=== PATIENT | male | born 1990 | race Caucasian/White ===

== ENCOUNTER 2020-03-02 09:25 | Emergency (ER) | payer BC, OTHER ==
[2020-03-02] MEDS ORDERED: Sodium Chloride 0.9% 10 ML Syringe FLUSH PRN (09:36)
[2020-03-02] MEDS ORDERED: fentaNYL 100 MCG/2 ML SDV IVPUSH ONE ×2 (09:36→10:25)
--- NOTE | 2020-03-02 09:39 | EDM.PDOC ---
ED HPI GENERAL MEDICAL PROBLEM - General Chief Complaint: Lower Extremity Injury/Pain Stated Complaint: FELL OFF A ROOF Time Seen by Provider: 03/02/20 09:36 Source of Information: Reports: Patient, RN Notes Reviewed History Limitations: Reports: No Limitations - History of Present Illness INITIAL COMMENTS - FREE TEXT/NARRATIVE: 29-year-old gentleman presents emergency department today with complaint of right foot pain ankle pain, he injured himself while at work he fell through some construction material onto the ground below estimate 10 foot height he did not hit his head there was no loss of consciousness denies any other injuries other than his right foot area Right Ankle Pain Score (Numeric/FACES): 9 - Related Data Allergies Allergy/AdvReac Type Severity Reaction Status Date / Time No Known Allergies Allergy Verified 03/02/20 09:45 Home Meds: Home Meds Hydrocodone/Acetaminophen [Hydrocodon-Acetaminophen 5-325] 1 each PO TID PRN #30 tablet 03/02/20 [Rx] Past Medical History - Past Health History Medical/Surgical History: Denies Medical/Surgical History Social & Family History - Tobacco Use Smoking Status *Q: Current Some Day Smoker Review of Systems - Review of Systems Review Of Systems: See Below Constitutional: Reports: No Symptoms Musculoskeletal: Reports: Foot Pain ED EXAM, GENERAL - Physical Exam Exam: See Below Free Text/Narrative:: Examination of the right foot area I do not appreciate any erythema there is no deformity pedal pulses +2 he has limited range of motion of the digit secondary to pain there is tenderness to any amount of palpation over the right ankle no tenderness to the knee no tenderness to the hip pelvic rocks is negative Exam Limited By: No Limitations General Appearance: Alert, Mild Distress ED TRAUMA EXTREMITY PROCEDURES - Splinting Right Lower Extremity Splint Site: Calcaneus Pre-Procedure NV Status: Normal Post-Procedure NV Status: Normal Splint Material: Fiberglass Splint Design: Posterior Applied & Form Fitted By: Provider, Nurse Provider Post-Splint Application NV Check: NV Status Normal, Good Position Complications: No Course - Vital Signs Last Recorded V/S: Last Vital Signs Temp 97.4 F 03/02/20 09:33 Pulse 62 03/02/20 10:40 Resp 18 03/02/20 10:40 BP 128/81 03/02/20 10:40 Pulse Ox 100 03/02/20 10:40 - Orders/Labs/Meds Orders: Active Orders 24 hr Category Date Time Status Peripheral IV Care [RC] . DIRECTED Care 03/02/20 09:37 Active Foot wo Cont Rt [CT] Stat Exams 03/02/20 11:12 Taken Sodium Chloride 0.9% [Saline Flush] Med 03/02/20 09:36 Active 10 ml FLUSH ASDIRECTED PRN DME for Discharge [COMM] Per Unit Routine Oth 03/02/20 12:46 Ordered Peripheral IV Insertion Adult [OM.PC] Urgent Oth 03/02/20 09:36 Ordered Medication Orders Sodium Chloride (Saline Flush) 10 ml FLUSH ASDIRECTED PRN PRN Reason: Keep Vein Open Last Admin: 03/02/20 09:47 Dose: 10 ml Documented by: CHAY Meds: Medications Generic Name Dose Route Start Last Admin Trade Name Freq PRN Reason Stop Dose Admin Sodium Chloride 10 ml 03/02/20 09:36 03/02/20 09:47 Saline Flush FLUSH 10 ml ASDIRECTED PRN Administration Keep Vein Open Discontinued Medications Generic Name Dose Route Start Last Admin Trade Name Freq PRN Reason Stop Dose Admin Fentanyl 100 mcg 03/02/20 09:36 03/02/20 09:45 Sublimaze IVPUSH 03/02/20 09:37 100 mcg ONETIME ONE Administration Fentanyl 50 mcg 03/02/20 10:25 03/02/20 10:37 Sublimaze IVPUSH 03/02/20 10:26 50 mcg ONETIME ONE Administration Ketamine HCl 20 mg 03/02/20 10:45 03/02/20 10:38 Ketalar IV 03/02/20 10:46 20 mg ONETIME ONE Administration Ketorolac Tromethamine 60 mg 03/02/20 11:11 03/02/20 12:08 Toradol IM 03/02/20 11:12 60 mg ONETIME ONE Administration Departure - Departure Time of Disposition: 12:48 Disposition: Home, Self-Care 01 Condition: Fair Clinical Impression: Calcaneus fracture, right Qualifiers: Encounter type: initial encounter Calcaneus location: body Fracture type: closed Fracture alignment: displaced Qualified Code(s): S92.011A - Displaced fracture of body of right calcaneus, initial encounter for closed fracture - Discharge Information Prescriptions: Hydrocodone/Acetaminophen [Hydrocodon-Acetaminophen 5-325] 1 each PO TID PRN #30 tablet PRN Reason: Pain Instructions: Calcaneal Fracture Repair Surgery, Care After Referrals: PCP,None [Primary Care Provider] - Forms: ED Department Discharge Care Plan Goals: Appointment with Dr. Pitts next week: Monday March 09, 2020 at 10am. Use your pain medication combination of the hydrocodone/Tylenol in combination with ibuprofen, alternate these pain meds as needed to control your pain, call or return to the emergency department worsening of symptoms Sepsis Event Note (ED) - Focused Exam Vital Signs: Vital Signs Temp Pulse Resp BP Pulse Ox 03/02/20 10:40 62 18 128/81 100 03/02/20 09:33 97.4 F 64 20 113/87 100 - My Orders Last 24 Hours: My Active Orders 03/02/20 09:36 Sodium Chloride 0.9% [Saline Flush] 10 ml FLUSH ASDIRECTED PRN Peripheral IV Insertion Adult [OM.PC] Urgent 03/02/20 09:37 Peripheral IV Care [RC] . DIRECTED 03/02/20 11:12 Foot wo Cont Rt [CT] Stat 03/02/20 12:46 DME for Discharge [COMM] Per Unit Routine - Assessment/Plan Last 24 Hours: My Active Orders 03/02/20 09:36 Sodium Chloride 0.9% [Saline Flush] 10 ml FLUSH ASDIRECTED PRN Peripheral IV Insertion Adult [OM.PC] Urgent 03/02/20 09:37 Peripheral IV Care [RC] . DIRECTED 03/02/20 11:12 Foot wo Cont Rt [CT] Stat 03/02/20 12:46 DME for Discharge [COMM] Per Unit Routine Plan: Assessment Acuity = acute Site and laterality = calcaneus fracture right closed displaced Etiology = secondary to trauma Manifestations = pain Location of injury = Home Lab values = x-ray and CT described a fracture above Plan Good relief with combination Toradol ketamine and fentanyl in the emergency department prescription written for hydrocodone 5/325 1 tab p.o. 3 times daily PRN total #30, he is placed in a posterior splint will follow-up with orthopedics next week discussed case with Dr. Pitts orthopedic surgery at 1230 This note was dictated using [employer] voice recognition software please call with any questions on syntax or grammar.
[2020-03-02] MEDS ORDERED: Ketamine 500 MG/5 ML MDV IV ONE ×2 (10:25→10:45)
--- NOTE | 2020-03-02 10:36 | CR ---
Ankle Min 3V Rt CLINICAL HISTORY: Pain, trauma FINDINGS: The soft tissues are swollen over the lateral malleolus.. There is deformity and irregular density in the calcaneus with flattening of Bohler's angle. Ankle mortise is anatomic. Impression: Calcaneal fracture
[2020-03-02] MEDS ORDERED: Ketorolac 60 MG/2 ML SDV IM ONE (11:11)
--- NOTE | 2020-03-02 12:50 | CT ---
Foot wo Cont Rt CLINICAL HISTORY: Calcaneal fracture TECHNIQUE: Multiple thin slice axial images were performed through the right foot. The images were reconstructed in the coronal and sagittal planes. Auto dosage reduction and iterative reconstruction techniques employed. FINDINGS: There is a displaced comminuted fracture through the mid calcaneus extending into the anterior calcaneus and subtalar joint. It extends into the calcaneocuboid joint. There are overlapping fracture fragments in the posterior subtalar joint. There is an ossification posterior to the talus which is felt to represent an os trigonum. Fracture extends through the sustentaculum troy which is displaced. The talus and cuboid are intact. Navicular and cuneiforms are intact. IMPRESSION: Comminuted displaced fracture through the mid and anterior calcaneus extending into the subtalar and calcaneocuboid joints
== END 2020-03-02 13:37 | disposition home or self-care (01) ==
LOC: JP.ED 09:25
DX: S92.011A Displaced fracture of body of right calcaneus, initial encounter for closed fracture (principal); S92.021A Displaced fracture of anterior process of right calcaneus, initial encounter for closed fracture; F17.200 Nicotine dependence, unspecified, uncomplicated; W13.2XXA Fall from, out of or through roof, initial encounter; Y92.69 Other specified industrial and construction area as the place of occurrence of the external cause; Y99.0 Civilian activity done for income or pay
CPT/HCPCS: 29515; 73610; 73700; 96372; 96374; 96375; 96376; 99284; J1885; J3010

== ENCOUNTER 2020-03-15 07:11 | Day surgery (SDC) | payer OTHER ==
[2020-03-15] MEDS ORDERED: Nozin Nasal Sanitizer NASBOTH ONE (08:00)
[2020-03-15] MEDS ORDERED: ceFAZolin 2 GM in Premix Bag 1 BAG IV ONE (08:00)
[2020-03-15] MEDS ORDERED: Lactated Ringers 1,000 ML IV SCH (08:00)
[2020-03-15] MEDS ORDERED: fentaNYL 250 MCG/5 ML SDV ONE ×2 (09:57→11:33)
[2020-03-15] MEDS ORDERED: Glycopyrrolate 0.2 MG/ML 5 ML MDV ONE (09:58)
[2020-03-15] MEDS ORDERED: Dexamethasone 4 MG/ML SDV ONE (09:58)
[2020-03-15] MEDS ORDERED: Ondansetron 4 MG/2 ML SDV ONE (09:58)
[2020-03-15] MEDS ORDERED: Rocuronium 50 MG/5 ML Vial ONE (09:58)
[2020-03-15] MEDS ORDERED: Propofol 200 MG/20 ML SDV ONE (09:58)
[2020-03-15] MEDS ORDERED: Neostigmine Methylsulfate 1 MG/ML 5 ML Syringe ONE (09:58)
[2020-03-15] MEDS: Bupivacaine 0.5% 30 ML SDV ONE ×2 (10:51→12:09)
[2020-03-15] MEDS ORDERED: Lactated Ringers 1,000 ML ONE (11:07)
[2020-03-15] MEDS ORDERED: Povidone-Iodine 10% Soln 118.25 ML Bottle ONE (11:49)
[2020-03-15] MEDS ORDERED: Acetaminophen/oxyCODONE 325-5 MG Tab PO SCH (13:15)
--- NOTE | 2020-03-17 17:43 | OR ---
DATE OF PROCEDURE: 03/15/2020 SURGEON: Jacobo Pitts MD PREOPERATIVE DIAGNOSIS: Comminuted, displaced intra-articular fracture, right calcaneus. POSTOPERATIVE DIAGNOSIS: Comminuted, displaced intra-articular fracture, right calcaneus. PROCEDURE PERFORMED: Open reduction and internal fixation of right calcaneus. ANESTHESIA: General. INDICATIONS: Karl is a 29-year-old male who sustained a fall at work resulting in a comminuted, displaced fracture of his right calcaneus. He has been in a splint and working on ice and elevation for the past week and half. He now presents for open reduction and internal fixation. Risks, benefits, potential complications of the procedure were discussed. DESCRIPTION OF PROCEDURE: After adequate anesthesia was obtained, patient was placed in a lateral decubitus position and secured with the beanbag positioner. Left leg was well padded and the right leg was placed on a pillow with a tourniquet about the upper thigh. Leg was prepped and draped in a sterile fashion, exsanguinated, and tourniquet inflated to 300 mmHg pressure. An incision was made over the lateral aspect of the calcaneus running just anterior to the Achilles tendon and along the junction between the plantar skin and the lateral skin, taken down full-thickness with subperiosteal dissection. Minimal manipulation of the skin flap was done. Dissection carried out proximally up to the subtalar joint and care taken to protect the peroneal tendons. K-wire was driven into the fibula and bent for use as a retractor. A second pin was placed into the neck of the talus and also bent up retracting the flap. Impacted nature of the fracture was identified. A combination of Conway elevator and small osteotome was used to free up the lateral wall fragment which was kept on the back table in a moist lap sponge. The articular fragment was next identified. This was impacted and was again freed. This actually consisted of 2 fragments, one more anterior with a transverse fracture as well as a posterior fragment. The main fragment was removed allowing access to the medial wall. The Schanz pin was placed into the calcaneus and used for traction and manipulation. The calcaneus was pulled down and manipulated into position and the posterior portion of the articular facet was reduced. The main articular fragment was then replaced and reduced. This was held in place with 2 K-wires and position was evaluated with the fluoroscopy. Lateral wall fragment was replaced and a Synthes precontoured calcaneus plate was selected. Additional fixation of the articular fragment was obtained with a lag screw. Calcaneal plate was secured with locking screws with one screw in the anterior process, 2 into the tuberosity and 2 just beneath the articular surface. Final position was checked with fluoroscopy. Due to the impacted comminution nature of the fragments and the bone gap left with reduction, crushed cancellous bone graft was used in the fracture gap prior to replacing the lateral wall fragment. Wound was thoroughly irrigated. 0 pop- off sutures were then used in the deep layer followed by 2-0 Vicryl and 3-0 nylon in interrupted fashion on the skin. Wound was infiltrated with Marcaine and a sterile dressing was applied along with a well-padded AO plaster splint with the foot in neutral position. The patient tolerated procedure very well. There were no complications, taken from the operating room in stable condition. Jacobo Pitts MD /[id number] [facility]
== END 2020-03-15 14:03 | disposition home or self-care (01) ==
LOC: JP.SDS 07:11
PROVIDERS: ATTEND Specialist
DX: S92.061A Displaced intraarticular fracture of right calcaneus, initial encounter for closed fracture (principal); F17.210 Nicotine dependence, cigarettes, uncomplicated; W19.XXXA Unspecified fall, initial encounter; Y92.89 Other specified places as the place of occurrence of the external cause; Y99.0 Civilian activity done for income or pay
CPT/HCPCS: 28415; 36415; 80048; 85027; A9270; C1713; J0690; J1100; J2405; J2704; J2710; J3010; J3490; J7120

== ENCOUNTER 2020-11-03 07:13 | Day surgery (SDC) | payer OTHER ==
[~2020-11-03 07:13] MED LIST: Bupivacaine 0.5% 30 ML SDV ONE
[2020-11-03] MEDS ORDERED: Nozin Nasal Sanitizer NASBOTH ONE (07:30)
[2020-11-03] MEDS ORDERED: Midazolam 1 MG/ML 2 ML SDV ONE (08:28)
[2020-11-03] MEDS ORDERED: fentaNYL 100 MCG/2 ML SDV ONE ×3 (08:28→10:26)
[2020-11-03] MEDS ORDERED: Propofol 200 MG/20 ML SDV ONE ×2 (08:28→09:31)
[2020-11-03] MEDS ORDERED: Lactated Ringers 1,000 ML IV SCH (08:30)
[2020-11-03 08:36] LABS: CORONAVIRUS COVID-19 NAA NEGATIVE (NEGATIVE)
[2020-11-03] MEDS ORDERED: ceFAZolin 1 GM in Premix Bag 1 BAG IV ONE (09:00)
[2020-11-03] MEDS ORDERED: ceFAZolin 1 GM in Sodium Chloride 0.9% 50 ML IV ONE (09:00)
[2020-11-03] MEDS ORDERED: Ketorolac 60 MG/2 ML SDV ONE (10:26)
[2020-11-03] MEDS ORDERED: Acetaminophen/HYDROcodone 325-5 MG Tab PO PRN (11:38)
--- NOTE | 2020-11-10 20:59 | OR ---
DATE OF PROCEDURE: 11/03/2020 SURGEON: Jacobo Pitts MD PREOPERATIVE DIAGNOSIS: Painful retained hardware, right calcaneus. POSTOPERATIVE DIAGNOSIS: Painful retained hardware, right calcaneus. PROCEDURE: Removal of hardware, right calcaneus. RETAIL ASSOCIATE: SILVERIO Evans ANESTHESIA: General. INDICATIONS: Heath is a 30-year-old gentleman who sustained a work-related injury to his right foot with a displaced calcaneus fracture. This was treated with open reduction and internal fixation. He is having persistent difficulty with pain over the lateral aspect of the hindfoot. He now presents for removal of the hardware. Risks, benefits, and potential complications of the procedure were discussed. DESCRIPTION OF PROCEDURE: After adequate anesthesia was obtained, the patient was placed in a slight lateral decubitus position and secured with a beanbag positioner. The right foot and leg were prepped and draped in a sterile fashion below a calf tourniquet. The foot was exsanguinated and the tourniquet was inflated. He was prepped and draped in a sterile fashion. A portion of the previous incision, which was somewhat hypertrophic, was excised revising the scar. This was taken down directly to bone and elevated as a full-thickness flap sharply with #15 blade. The plate was identified. The screws were cleared of soft tissue, and the most posterior screws in the tuberosity were removed. Moving more anterior and superior, 2 screws just beneath the joint revealed the locking portions of the head to have broken and the locking heads were removed. Moving more anterior, dissection of the most anterior portion of the plate revealed the most anterior screw, and this was removed without difficulty. This allowed removal of the plate. Two broken screws were identified and end could be grasped with a needle ambulette driver, and these were then backed out without difficulty. The compression screw beneath the articular surface was identified using fluoroscopy. Soft tissues were cleared from the screw head, and this was then removed without difficulty. Confirmation of removal of all hardware was done. Wound was irrigated and then closed with 0 Vicryl in the deep layer, 2-0 Vicryl and a running 3-0 Vicryl, subcuticular stitch. Steri-Strips were applied. Wound was infiltrated with Marcaine, and a sterile dressing was applied. Light compressive wrap was placed. The patient tolerated the procedure very well. There were no complications. He was taken from the operating room in stable condition. Jacobo Pitts MD /[id number]
== END 2020-11-03 12:25 | disposition home or self-care (01) ==
LOC: JP.SDS 07:13
PROVIDERS: ATTEND Specialist
DX: T84.84XA Pain due to internal orthopedic prosthetic devices, implants and grafts, initial encounter (principal); F17.200 Nicotine dependence, unspecified, uncomplicated; Z01.812 Encounter for preprocedural laboratory examination; Z20.822 Contact with and (suspected) exposure to COVID-19
CPT/HCPCS: 0241U; 20680; 36415; 76000; 80048; 85027; A9270; J0690; J1885; J2250; J2704; J3010; J3490; J7120